=== PATIENT | female | born 2000 | race Two or more races ===

== ENCOUNTER 2025-01-25 22:26 | Emergency (ER) | payer OTHER ==
[~2025-01-25] VITALS: Ht 157.5 cm; Wt 129.3 kg
[2025-01-25 22:37] VITALS: BP 151/95; O2SAT 99
[2025-01-25] MEDS ORDERED: MACROBID 100 M100 MG (22:37)
[2025-01-25] MEDS ORDERED: PRENATABS RX T1 EACH (22:37)
[2025-01-26] MEDS ORDERED: KETOROLAC TROMETHAMINE 30 MG VIAL IV STA (00:19)
[2025-01-26] MEDS ORDERED: 0.9 % SODIUM CHLORIDE 1,000 ML IV ONE (00:30)
[2025-01-26] MEDS ORDERED: KETOROLAC TROMETHAMINE 30 MG VIAL ONE (00:31)
[2025-01-26 01:08] LABS: BASO % 0.2 % (0.1-1.2); EOS # 0.58 (0.04-0.54); EOS % 4.4 % (0.7-7.0); HEMATOCRIT 35.3 % (34.1-44.9); LYMPH # 1.91 (1.18-3.74); LYMPH % 14.5 % (19.3-53.1); MEAN CORPUSCULAR HEMOGLOBIN 29.6 pg (25.6-32.2); MONO % 6.8 % (4.7-12.5); NEUT # 9.69 (1.56-6.13); NEUT % 73.4 % (34.0-71.1); PLATELET COUNT 205 K/uL (163-369); RED BLOOD COUNT 4.06 M/uL (3.93-5.22); RED CELL DISTRIBUTION WIDTH 12.6 % (11.6-14.4)
[2025-01-26 03:07] LABS: CALCIUM 8.8 mg/dL (8.5-10.1); CREATININE SERUM 0.68 mg/dL (0.55-1.02); GFR 105.42; POTASSIUM 3.83 mEq/L (3.5-5.1)
[2025-01-26 04:16] LABS: PH,URINE 5.5 (5.0-8.0); URINE APPEARANCE Cloudy; URINE BILIRRUBIN Small (NEGATIVE); URINE BLOOD Small; URINE COLOR Dark Yellow; URINE GLUCOSE Negative (NEGATIVE); URINE KETONE Trace (NEGATIVE); URINE LEUKOCYTE Trace; URINE NITRATE Negative; URINE PROTEIN 30 (NEGATIVE)
[2025-01-26 04:20] LABS: URINE BACTERIA 365.9 uL (0.0-1933); URINE CAST 1.76 uL (0.0-1.40); URINE EPITHELIAL CELLS 29.4 uL (0.0-38.8); URINE RBC 158.9 uL (0.0-20.8); URINE WBC 36.2 uL (0.0-23.2)
[2025-01-26 05:13] LABS: URINE CRYSTALS FEW /HPF
== END 2025-01-26 07:30 ==
LOC: ER 22:57
PROVIDERS: General Practice
DX: O26.892 Other specified pregnancy related conditions, second trimester (principal); R10.2 Pelvic and perineal pain; Z3A.16 16 weeks gestation of pregnancy

== ENCOUNTER 2025-05-10 10:27 | Outpatient (CLI) | payer OTHER ==
[~2025-05-10 10:27] MED LIST: MACROBID 100 M100 MG; PRENATABS RX T1 EACH
== END 2025-05-10 10:55 | disposition home or self-care (01) ==
LOC: NST 10:27
PROVIDERS: ATTEND Obstetrics & Gynecology
DX: Z34.83 Encounter for supervision of other normal pregnancy, third trimester (principal)

== ENCOUNTER 2025-05-26 12:02 | Outpatient (CLI) | payer OTHER | END 2025-05-26 13:25 | disposition home or self-care (01) | LOC: NST 12:02 | PROVIDERS: ATTEND Obstetrics & Gynecology Gynecology | DX: Z34.83 Encounter for supervision of other normal pregnancy, third trimester (principal) ==

== ENCOUNTER 2025-06-07 19:39 | Inpatient (IN) | payer OTHER ==
[~2025-06-07] VITALS: Ht 157.5 cm; Wt 2.7 kg
[2025-06-07 18:51] VITALS: BP 115/78
[2025-06-07 20:30] VITALS: BP 115/78
[2025-06-07] MEDS ORDERED: AMPICILLIN SODIUM 2,000 MG VIAL IV STA (20:40)
[2025-06-07] MEDS ORDERED: RINGERS SOLUTION,LACTATED 1,000 ML IV SCH (20:45)
[2025-06-07] MEDS ORDERED: AMPICILLIN SODIUM 1,000 MG VIAL IV SCH (21:00)
[2025-06-07 22:02] LABS: INR 0.98
[2025-06-07 22:06] LABS: ALT/SGPT 20.0 U/L (12-78); AST/SGOT 14.0 U/L (15-37); BILIRUBIN TOTAL 0.38 mg/dL (0.3-1.2); BUN CREA RATIO 12.0 (7.0-25.0); CREATININE SERUM 0.49 mg/dL (0.55-1.02); GFR 153.88; GLOBULINA 3.5 G/DL (2.4-3.5); GLUCOSE FASTING 99.0 mg/dL (65-100); OSMOLALITY SERUM 283.0 MOSM/KG (275-295)
[2025-06-07 22:30] LABS: BASO % 0.3 % (0.1-1.2); EOS # 0.60 (0.04-0.54); EOS % 6.1 % (0.7-7.0); LYMPH # 1.61 (1.18-3.74); LYMPH % 16.4 % (19.3-53.1); MEAN PLATELET VOLUME 9.50 fl (9.4-12.4); MONO # 0.78 (0.24-0.82); MONO % 8.0 % (4.7-12.5); NEUT # 6.65 (1.56-6.13); NEUT % 68.0 % (34.0-71.1); RED CELL DISTRIBUTION WIDTH 12.5 % (11.6-14.4)
[2025-06-07 23:10] VITALS: BP 105/69
[2025-06-08] MEDS ORDERED: MISOPROSTOL 25 MCG TABLET ONE (01:09)
[2025-06-08] MEDS ORDERED: MISOPROSTOL 25 MCG TABLET VAG ONE (01:30)
[2025-06-08] MEDS ORDERED: MISOPROSTOL 25 MCG TABLET VAG SCH (01:30)
[2025-06-08 03:36] VITALS: BP 111/73
[2025-06-08 07:21] VITALS: BP 117/61
[2025-06-08] MEDS ORDERED: OXYTOCIN 500 ML IV ONE (08:45)
[2025-06-08 11:46] VITALS: BP 126/51
[2025-06-08] MEDS ORDERED: OXYTOCIN 10 UNITS/ML VIAL ONE ×2 (12:55→19:55)
[2025-06-08] MEDS ORDERED: ERYTHROMYCIN BASE OPHT 1GM EACH TUBE OP ONE ×2 (12:56→14:53)
[2025-06-08] MEDS ORDERED: CEFAZOLIN SODIUM 2,000 MG in 0.9 % SODIUM CHLORIDE 100 ML IV SCH (13:15)
[2025-06-08] MEDS ORDERED: AZITHROMYCIN 500 MG VIAL IV ONE (14:05)
[2025-06-08] MEDS ORDERED: OXYTOCIN 1,000 ML IV ONE (16:30)
[2025-06-08] MEDS ORDERED: KETOROLAC TROMETHAMINE 30 MG VIAL IV SCH (18:00)
[2025-06-08] MEDS ORDERED: KETOROLAC TROMETHAMINE 30 MG VIAL ONE (18:30)
[2025-06-08 21:06] VITALS: BP 110/71
[2025-06-09] VITALS: BP 115/75
[2025-06-09] MEDS ORDERED: ENOXAPARIN SODIUM 40 MG/0.4 ML SYRINGE SUBCUTANEO ONE (05:30)
[2025-06-09] MEDS ORDERED: ACETAMINOPHEN 500 MG GEL..CAP PO SCH (06:00)
[2025-06-09 06:56] LABS: BASO % 0.2 % (0.1-1.2); EOS # 0.39 (0.04-0.54); EOS % 3.3 % (0.7-7.0); LYMPH # 1.09 (1.18-3.74); LYMPH % 9.2 % (19.3-53.1); MEAN PLATELET VOLUME 10.10 fl (9.4-12.4); MONO # 0.68 (0.24-0.82); MONO % 5.7 % (4.7-12.5); NEUT # 9.62 (1.56-6.13); NEUT % 80.9 % (34.0-71.1); RED CELL DISTRIBUTION WIDTH 12.5 % (11.6-14.4)
[2025-06-09 08:26] VITALS: BP 130/70
[2025-06-09] MEDS ORDERED: SIMETHICONE 125 MG CAPSULE PO SCH (09:00)
[2025-06-09] MEDS ORDERED: DOCUSATE SODIUM 100MG CAP PO SCH (09:00)
[2025-06-09] MEDS ORDERED: PNV,CALCIUM 72/IRON/FOLIC ACID 1 TAB TABLET PO SCH (09:00)
[2025-06-09] MEDS ORDERED: GABAPENTIN 300 MG CAPSULE PO SCH (09:00)
[2025-06-09 18:55] VITALS: BP 126/81
[2025-06-10 00:18] VITALS: BP 110/71
[2025-06-10 05:08] VITALS: BP 124/71
[2025-06-10 08:50] VITALS: BP 130/80
[2025-06-10 16:00] VITALS: BP 137/83
[2025-06-11 00:25] VITALS: BP 138/75
[2025-06-11 08:00] VITALS: BP 124/82
== END 2025-06-11 17:02 | disposition home or self-care (01) | DRG 788 ==
LOC: OBS/DEL 19:39 → O/R 20:37 → LDR 20:37 → O/R 06-08 13:25 → OB/GYN 06-08 14:32
PROVIDERS: Obstetrics & Gynecology Gynecology; ADMIT Obstetrics & Gynecology; ATTEND Obstetrics & Gynecology
PROC: 3E0P7VZ Introduction of Hormone into Female Reproductive, Via Natural or Artificial Opening (ICD-10-PCS; 2025-06-07)
PROC: 4A1HXCZ Monitoring of Products of Conception, Cardiac Rate, External Approach (ICD-10-PCS; 2025-06-07)
PROC: 3E033VJ Introduction of Other Hormone into Peripheral Vein, Percutaneous Approach (ICD-10-PCS; 2025-06-08)
PROC: 10D00Z1 Extraction of Products of Conception, Low, Open Approach (ICD-10-PCS; principal; 2025-06-08 14:00)
DX: O61.0 Failed medical induction of labor (principal); O42.02 Full-term premature rupture of membranes, onset of labor within 24 hours of rupture; O99.824 Streptococcus B carrier state complicating childbirth; Z3A.37 37 weeks gestation of pregnancy; Z37.0 Single live birth